=== PATIENT | female | born 1965 | race Caucasian/White ===

== ENCOUNTER 2019-04-06 11:17 | Day surgery (SDC) | payer BC ==
[2019-04-03 12:23] VITALS: Ht 160 cm; Wt 85.8 kg
[~2019-04-06] VITALS: Ht 160 cm; Wt 85.8 kg
[2019-04-06] VITALS (17 sets, daily range): BP systolic 101–123; BP diastolic 51–69; PULSE 72–96; RESP 13–26
[~2019-04-06 11:17] MED LIST: AMLO2.5T78 PO; ASPI81TA52 PO; ATOR20TA38 PO; CARV3.1260 PO; HYDR-4011 PO; IBUP800T48 PO; NITR0.4T39 SL; OMEP20CA16 PO; SPIR25TA PO
[2019-04-06] MEDS ORDERED: CEFAZOLIN 1 GM INJ ONE (12:31)
[2019-04-06] MEDS ORDERED: PROPOFOL 20 ML ONE (12:31)
[2019-04-06] MEDS ORDERED: GLYCOPYRROLATE 0.4 MG INJ ONE (12:31)
[2019-04-06] MEDS ORDERED: ROCURONIUM 50 MG INJ ONE ×2 (12:31)
[2019-04-06] MEDS ORDERED: NEOSTIGMINE 3 MG/3 ML SYRINGE ONE (12:31)
[2019-04-06] MEDS ORDERED: ONDANSETRON 4 MG INJ ONE (12:32)
[2019-04-06] MEDS ORDERED: FENTAnyl 50 MCG/ML VIAL ONE (12:32)
[2019-04-06] MEDS ORDERED: ROPIVACAINE 0.5 % 30 ML VIAL ONE ×2 (12:32→15:08)
[2019-04-06] MEDS ORDERED: DEXAMETHASONE 4 MG/ML 5 ML INJ ONE (12:32)
[2019-04-06] MEDS ORDERED: MIDAZOLAM 1 MG/ML 2 ML INJ ONE ×2 (12:32→14:12)
[2019-04-06] MEDS ORDERED: LABETALOL HCL 20MG INJ ONE (12:39)
[2019-04-06] MEDS ORDERED: LACTATED RINGER'S 1,000 ML IV SCH (13:00)
--- NOTE | 2019-04-06 13:50 | HPN ---
Date/Time of Note Date/Time of Note DATE: 04/06/19 TIME: 13:50 Interval H&P Admission Note Pt. seen H&P reviewed: No system changes MULUGETA PENA MD Apr 06, 2019 13:50
--- NOTE | 2019-04-06 14:00 | PREAC ---
Date/Time of Note Date/Time of Note DATE: 04/06/19 TIME: 13:57 Anesthesia Eval and Record Evaluation Time Pre-Procedure Interview DATE: 04/06/19 TIME: 13:57 Age 53 Sex female NPO: 8 hrs Preoperative diagnosis RIGHT ANKLE OA Planned procedure RIGHT ANKLE ARTHROSCOPY, EXTENSIVE DEBRIDEMENT Past Medical History Past Medical History: Includes Cardio: DC, CAD (MICROVASCULAR DISAESE, CARDIAC CLEARANCE NOTED) Pulm: Asthma GI: GERD, Obesity Surgery & Anesthesia Issues No known issue Meds Anticoagulation: No Beta Teri within 24 hr: No Reason Beta Teri not given: Pt. not on B-Teri Reported Medications Ibuprofen* (Motrin*) 800 Mg Tab, 800 MG PO DAILY PRN for PAIN, TAB 04/06/19 Hydrocodone/Acetaminophen ([place] 5-325 Tablet) 1 Each Tablet, 1 EACH PO DAILY PRN for PAIN, TAB 04/06/19 Aspirin (Low Dose Aspirin) 81 Mg Tablet.dr, 81 MG PO DAILY, #30 TAB 04/06/19 Nitroglycerin* (Nitrostat*) 0.4 Mg Tab.subl, 0.4 MG SL Q5MIN PRN for CHEST PAIN, BOTTLE 04/06/19 Spironolactone* (Aldactone*) 25 Mg Tablet, 25 MG PO DAILY, #30 TAB 04/06/19 Omeprazole* (Omeprazole*) 20 Mg Capsule.dr, 20 MG PO DAILY, #30 CAP 04/06/19 Amlodipine Besylate* (Amlodipine Besylate*) 2.5 Mg Tablet, 2.5 MG PO DAILY, #30 TAB 04/06/19 Atorvastatin Calcium* (Atorvastatin Calcium*) 20 Mg Tablet, 20 MG PO QHS, #30 TAB 04/06/19 Carvedilol* (Carvedilol*) 3.125 Mg Tablet, 3.125 MG PO BID, #60 TAB 04/06/19 Current Medications Lactated Ringer's 1,000 ml @ 25 mls/hr Q24H IV ; Start 04/06/19 at 13:00 Meds reviewed: Yes Allergies Coded Allergies: No Known Allergy (Unverified , 04/06/19) Allergies Reviewed: Yes Labs/Studies Labs Reviewed: Reviewed by anesthesiologist test: N/A Studies: ECG (SR @ 74 BPM), CXR (NAPD) Pre-procedure Exam Last vitals Vital Signs Date Temp Pulse Resp B/P (MAP) Pulse Ox O2 O2 Flow FiO2 Time Delivery Rate 04/06/19 97.7 75 16 107/61 97 Room Air 12:52 (76) Airway: Adequate mouth opening, Adequate thyromental dist Mallampati: Mallampati II Teeth: Normal Lung: Normal Heart: Normal ASA Physical Status ASA physical status: 3 Emergency: None Planned Anesthetic General/MAC: ETT Nerve block: Sciatic (right) Planned Pain Management Single shot nerve block, Parenteral pain med Pre-operative Attestations Prior to commencing anesthesia and surgery, the patient was re-evaluated, there was verification of: *The patient's identity *The results of appropriate recent lab work and preoperative vital signs *The above evaluation not changing prior to induction *Anesthetic plan, risk benefits, alternative and complications discussed with patient/family; questions answered; patient/family understands, accepts and wishes to proceed. Neel Matthews M.D. Apr 06, 2019 14:00
[2019-04-06] MEDS ORDERED: POVIDONE IODINE 10% 28.4 GM OINT ONE (15:08)
[2019-04-06] MEDS ORDERED: POLYMYXIN/BACITRACIN 1L IRRIG ONE (15:08)
[2019-04-06] MEDS ORDERED: KETOROLAC 30 MG INJ ONE (17:13)
[2019-04-06] MEDS ORDERED: ALBUTEROL 0.083% (NEB) 2.5 MG/3 ML AMP HHN PRN (17:30)
[2019-04-06] MEDS ORDERED: DIPHENHYDRAMINE 50 MG INJ IV PRN (17:30)
[2019-04-06] MEDS ORDERED: IPRATROPIUM (NEB) 0.5 MG/2.5 ML AMP HHN PRN (17:30)
[2019-04-06] MEDS ORDERED: MIDAZOLAM 1 MG/ML 2 ML INJ IV PRN (17:30)
[2019-04-06] MEDS ORDERED: EPHEDrine 25 MG/5 ML SYG IV PRN (17:30)
[2019-04-06] MEDS ORDERED: hydrALAzine 20 MG INJ IV PRN (17:30)
[2019-04-06] MEDS ORDERED: MEPERIDINE 25 MG INJ IV PRN (17:30)
[2019-04-06] MEDS ORDERED: HYDROmorphONE 1 MG/5 ML IV SYRINGE IV PRN ×3 (17:30)
[2019-04-06] MEDS ORDERED: ONDANSETRON 4 MG INJ IV PRN ×2 (17:30→18:00)
[2019-04-06] MEDS ORDERED: LABETALOL HCL 20MG INJ IV PRN (17:30)
[2019-04-06] MEDS ORDERED: TRIMETHOBENZAMIDE 100 MG/ML VIAL IM PRN (17:30)
[2019-04-06] MEDS ORDERED: FENTAnyl 50 MCG/ML VIAL IV PRN ×2 (17:30)
[2019-04-06] MEDS ORDERED: OXYCODONE/ACETAMINOPHEN (5/325) TAB PO PRN ×4 (17:30→18:00)
[2019-04-06] MEDS ORDERED: SOD CHLORIDE 0.9% 1,000 ML IV SCH (17:52)
--- NOTE | 2019-04-06 17:55 | OPPN ---
Date/Time of Note Date/Time of Note DATE: 04/06/19 TIME: 17:54 Operative Report Preoperative Diagnosis Right ankle chronic instability Postoperative Diagnosis Right ankle chronic instability Operation/Procedure Performed Right ankle OPA, debridement, right brostrom with arguelles modification, right foot excision bony spur of talus Surgeon see signature line production assistant MD Stefanie Anesthesia: general, other Estimated blood loss: 0 - 10 ml's Transfusion Required none Specimen none Grafts/Implants none Complications none MULUGETA PENA MD Apr 06, 2019 17:55
[2019-04-06] MEDS ORDERED: morphine 2 MG INJ IV PRN (18:00)
[2019-04-06] MEDS: FENTAnyl 50 MCG/ML VIAL IV PRN ×2 (18:38→18:46)
--- NOTE | 2019-04-07 00:10 | OPR ---
DATE OF OPERATION: 04/06/2019 PREOPERATIVE DIAGNOSES: 1. Soft tissue impingement, right ankle. 2. Anterolateral instability, right ankle. 3. Large osteophyte along the talar head and neck anteriorly. POSTOPERATIVE DIAGNOSES: 1. Soft tissue impingement, left ankle. 2. Anterolateral instability, right ankle. 3. Large osteophyte along the talar head and neck and the dorsolateral aspect of the ankle. OPERATION PERFORMED: 1. Arthroscopy, right ankle, with soft tissue distraction. 2. Extensive debridement of the ankle. 3. Open excision of large osteophytes along the talar head and neck through a separate incision ante rolaterally. 4. Open modified Brostrom reconstruction. 5. Use of fluoroscopy to verify position and alignment of the osteophyte removal and verify its posi tion. 6. Short-leg cast. SURGEON: Mulugeta Lopes MD PRESIDENT FINANCIAL INSTITUTION: Lucas Watts MD ANESTHESIA: General with popliteal block. TOURNIQUET TIME: 90 minutes. DESCRIPTION OF PROCEDURE: The patient taken to the operating room, placed in supine position. Satis factory popliteal block was given. Satisfactory general anesthesia was administered, 2 grams Ancef i ntravenously. The left thigh was secured in the thigh angulo. Arms were carefully padded. The righ t leg was prepped and draped in usual manner. Superficial peroneal nerve was marked out. Standard a nterolateral, anteromedial and posterolateral portals were made using extreme caution to avoid injuri ng neurovascular structures. Soft tissue distraction was applied. The arthroscope was inserted. Th ere was synovitis along the medial malleolar talar articulation. The deltoid ligament was intact. M edial corner was intact. Central overhang was intact without significant osteophytes. There was a l ot of scarring and synovitis along the lateral gutter and syndesmosis and along the anterior gutter. There was scarring along the anterior talofibular ligament. Minimal chondromalacia was seen, grade I, slight grade II, a couple of small scattered areas on the tibia and the talus. Otherwise, it was smooth and glistening anteriorly, centrally and posteriorly. There was a lot of synovitis and scarri ng posteriorly with partial tear of the transverse ligament. The FHL was intact. Shaver was inserte d. The medial gutter was debrided. Soft tissue peeled off the distal tibia. The syndesmosis and la teral gutter were debrided, being careful not to debride too much because of the Brostrom procedure t hat we are going to do later. Anterior gutter was debrided. A suction basket was used to debride ac cessory fascicle of the syndesmotic ligament. After complete debridement, the ankle was then irrigat ed clear. The ankle was then reprepped and draped and all new gowns, gloves and instruments were used. The ost eophyte along the talar head and neck anterolaterally was right near the superficial peroneal nerve. We made a small incision lateral to the nerve. Dissection carried down to subcutaneous tissue. We retracted the tendons, opened the capsule covering the osteophyte. We verified the osteophyte was th e exact location the one on the x-ray with fluoroscopy. It was then excised with rongeurs and smooth ed with power rasp until the area was completely devoid of any bony prominence. A lateral fluoroscop ic view showed complete removal of the osteophyte. Wounds were irrigated clear. The deep tissues we re closed with 2-0 PDS along the extensor retinaculum and capsule. Subcutaneous tissue closed with a few 3-0 undyed Vicryl and skin with 4-0 black nylon, being very careful to preserve the superficial peroneal nerve branch. With the tourniquet inflated to 250 mmHg an incision was made from just above the tip of the fibula, carried down toward the sinus tarsi. Dissection was carried down to subcutaneous tissue. Great care was made to make some minimal flaps anteriorly and posteriorly. The peroneal tendon sheath was open ed. Peroneal tendons were retracted. The extensor retinaculum was lifted up and marked with 3-0 und yed Vicryl. The anterior talofibular and calcaneofibular ligaments were thinned out, appeared to be loose. A clamp was placed in the soft spot anteriorly and an oblique incision was made along the fib radha through the anterior talofibular and calcaneofibular ligaments with a cuff of tissue on the fibul a. The syndesmosis was further debrided through an open approach. Wounds were irrigated with antibi otic solution. Then 2-0 PDS was placed in a uywjq-deyr-ontt fashion through the calcaneofibular liga ment, a 0 FiberWire was placed in a vtfey-auzy-aqcs fashion through the anterior talofibular ligament . Then 2-0 PDS was used to do a utsyvk-li-ywvts around the anterior capsule. The ankle was then pierre hernandez in neutral position. The ankle was then placed in neutral position and the ankle was reduced. W hile it was reduced the sutures were sequentially tied from posterior to anterior. When we were done , the ankle had good motion and the anterior drawer was stable. The peroneal tendons were inspected, there were no tears. Tenosynovectomy was performed. The wound was irrigated with antibiotic soluti on. The 3-0 PDS was used in a etlpz-nvmk-zbcr fashion. We released the superior peroneal retinaculu m. The peroneal tendon sheath was closed with 3-0 PDS. Tourniquet was released, bleeders were coagu lated, wounds irrigated with antibiotic solution. Subcutaneous tissue was closed with 3-0 undyed Jarocho ryl and skin with 4-0 black nylon. Saphenous nerve block using 0.5% ropivacaine. Compression dressi ng applied. The patient in a short-leg cast in neutral position. At the end of the procedure sponge and needle count was correct. Patient tolerated the procedure well in a [facility]. PLASTER MECHANIC ORTHOPEDIC SURGEON: During the procedure, an reading assistant orthopedic surgeon was used at [facility]. The reading assistant helped with manipulating the arthroscope and distracting the ankle. In additi on, the reading assistant helped with reducing the ankle while I tied the sutures. Without a skilled orthope dic surgeon reading assistant, this could not have been done and should be compensated appropriately. Dictated By: MULUGETA AQUINO/KERRI Conf#: [id number] DID#: [id number]
--- NOTE | 2019-04-07 07:47 | PAC ---
Date/Time of Note Date/Time of Note DATE: 04/07/19 TIME: 07:47 Post-Anesthesia Notes Post-Anesthesia Note Last documented vital signs Vital Signs Date Temp Pulse Resp B/P (MAP) Pulse Ox O2 O2 Flow FiO2 Time Delivery Rate 04/06/19 98.7 74 18 113/62 99 Room Air 19:15 (79) 04/06/19 2.0 18:35 Activity: WNL Respiratory function: WNL Cardiovascular function: WNL Mental status: Baseline Pain reasonably controlled: Yes Hydration appropriate: Yes Nausea/Vomiting absent: Yes Neel Matthews M.D. Apr 07, 2019 07:47
== END 2019-04-06 19:43 | disposition home or self-care (01) ==
LOC: SDS 11:17
PROVIDERS: ATTEND Orthopaedic Surgery
DX: M25.871 Other specified joint disorders, right ankle and foot (principal); M25.371 Other instability, right ankle; M25.771 Osteophyte, right ankle; I25.10 Atherosclerotic heart disease of native coronary artery without angina pectoris; J45.909 Unspecified asthma, uncomplicated; K21.9 Gastro-esophageal reflux disease without esophagitis; I25.2 Old myocardial infarction
CPT/HCPCS: 27698; 28104; 29898; 73610; J0690; J1100; J1885; J2250; J2405; J2710; J2795; J3010